=== PATIENT | female | born 1975 | race Caucasian/White ===

== ENCOUNTER 2017-01-30 13:36 | Emergency (ER) | payer SELFPAY ==
[~2017-01-30] VITALS: Ht 170.2 cm; Wt 190.0 kg
[2017-01-30 13:37] VITALS: BP 191/114; PULSE 91; RESP 12; TEMP 98.7; O2SAT 97
[2017-01-30 13:48] VITALS: BP 159/105; PULSE 89
--- NOTE | 2017-01-30 13:49 | PD ---
Physical Exam Time Seen by Provider: 13:46 Narrative 42-year-old female presents emergency department with complaint of bilateral lower leg and feet swelling for the last couple days. Is also complaining of bilateral leg pain and left knee pain. History of DVTs and PE's. Has IVC filter. Currently on Coumadin 17.5 mg daily. Has been told by a training officer that she has a clotting disorder but has not had the testing. Patient seen in triage. Vital signs reviewed. Patient awaiting bed placement. Data Data Last Documented VS Vital Signs Date Time Temp Pulse Resp B/P (MAP) Pulse Ox O2 Delivery O2 Flow Rate FiO2 01/30/17 13:37 98.7 91 12 191/114 (139) 97 MDM Supervised Visit with BENJI: Amira Newton Jan 30, 2017 13:49
[2017-01-30] MEDS ORDERED: PROZ40CA PO (14:24)
[2017-01-30] MEDS ORDERED: COUM10TA PO (14:24)
[2017-01-30] MEDS ORDERED: METO100T PO (14:24)
[2017-01-30] MEDS ORDERED: SODIUM CHLORIDE 0.9% FLUSH 10 ML FLUSH IVF PRN (14:30)
[2017-01-30 14:36] VITALS: RESP 18; O2SAT 98
--- NOTE | 2017-01-30 14:41 | PD ---
HPI Chief Complaint: Pain: Acute or Chronic Time Seen by Provider: 14:23 Travel History International Travel<30 days: No Contact w/Intl Traveler<30days: No Traveled to known affect area: No History of Present Illness HPI Patient comes in complaining of possible new DVTs in bilateral lower extremity secondary to worsening swelling bilateral lower extremities over the past 2 days. Patient states she has a history of DVTs and PE. Patient states she is on Coumadin daily for this and has IVC filter placed. Patient states she's been off of her Coumadin for 5 days since starting her menstrual cycle. Patient states she does not take her Coumadin during her menstrual cycle secondary to making her bleed heavier than normal. Patient reports her clinical services specialist is aware of this. Patient reports she has not taken her blood pressure medicine for 2 days and her last INR was subtherapeutic at 1.8 week ago. Patient states she has been elevating her legs but the swelling is not getting better. States pain is worse when she dangles her legs. Patient describes pain as a sore/achiness in bilateral ankles and left knee. Patient denies any trauma, fevers, shortness breath, chest pain, nausea, vomiting, change in bowel or bladder. Patient also concerned as she feels as though the color extremities becoming more red than normal. Denies any radiation of the pain. PFSH Past Medical History Hx Anticoagulant Therapy: Yes (coumadin) Anemia: Yes Anxiety: Yes Depression: Yes Cardiovascular Problems: Yes (htn) Diminished Hearing: No Deep Vein Thrombosis: Yes Gastrointestinal Disorders: Yes (DIVERTICULITIS HX) Hypertension: Yes Psychiatric: Yes Tetanus Vaccination: > 5 Years Influenza Vaccination: No ?: Not LMP: 01/27/17 : 1 Para: 0 Miscarriage: 0 : 0 Past Surgical History Abdominal Surgery: Yes (GASTRIC BYPASS) Section: Yes (X 1) Cholecystectomy: Yes Social History Alcohol Use: Yes (OCASSIONALLY) Tobacco Use: No (QUIT 3 YEARS AGO) Substance Use: No Allergies-Medications (Allergen,Severity, Reaction): Coded Allergies: cyclobenzaprine (Verified Allergy, Unknown, HIVES , 01/30/17) tramadol (Verified Allergy, Unknown, HIVES, 01/30/17) cefazolin (Verified Adverse Reaction, Unknown, 01/30/17) CONTRAINDICATION FOR COUMADIN TREATMENT Reported Meds & Prescriptions Reported Meds & Active Scripts Active Reported Prozac (Fluoxetine HCl) 40 Mg Cap 80 Mg PO DAILY Metoprolol Tartrate 100 Mg Tab 100 Mg PO BID Coumadin (Warfarin) 10 Mg Tab 17.5 Mg PO DAILY Review of Systems Except as stated in HPI: all other systems reviewed are Neg Physical Exam Narrative GENERAL: Well-developed, overly nourished, in no acute distress, and non-ill appearing. SKIN: Focused skin assessment warm and dry. Mild erythematous bilateral lower extremities distally. Is afebrile, without induration, without crepitus, without fluctuation, and without streaking. HEAD: Atraumatic. Normocephalic. EYES: Pupils equal and round. EOMI. No scleral icterus. No injection or drainage. ENT: No nasal bleeding or discharge. Mucous membranes pink and moist. NECK: Trachea midline. Supple. No nuclear rigidity. CARDIOVASCULAR: Regular rate and rhythm. No murmur appreciated. Radial pulses 2+, intact, equal bilaterally. Capillary refill less than 2 seconds. RESPIRATORY: No accessory muscle use. No respiratory distress. Clear to auscultation. Breath sounds equal bilaterally. MUSCULOSKELETAL: No obvious deformities. No clubbing. No cyanosis. No edema. Full range of motion. Knee: Negative patellar apprehension, varus and valgus maneuvers, anterior draw test, and Oralia test. Pulses equal BL distal to injury. Capillary refill less than 2 seconds distal to injury and equal BL. FROM distal to injury and equal BL. Strength distal to injury equal BL. NV intact distal to injury. Dorsal pulses equal BL. Sensation equal BL 1st web space. Ankle: Neagative anterior draw and Lanier test. Negative [place]'s sign. No laxity noted with passive inversion and eversion of BL ankles. Negative squeeze test. Pulses equal BL distal to injury. Capillary refill less than 2 seconds distal to injury and equal BL. Sensation equal BL 1st web space. FROM of toes distal to injury and equal BL. NV intact distal to injury and equal BL. Dorsal pulses equal BL. NEUROLOGICAL: Awake and alert. No obvious cranial nerve deficits. Motor grossly within normal limits. Normal speech. PSYCHIATRIC: Appropriate mood and affect; insight and judgment normal. Data Data Last Documented VS Vital Signs Date Time Temp Pulse Resp B/P (MAP) Pulse Ox O2 Delivery O2 Flow Rate FiO2 01/30/17 16:50 97.8 78 17 130/81 (97) 99 01/30/17 14:36 Room Air Orders Orders Electrocardiogram (01/30/17 14:30) Basic Metabolic Panel (Bmp) (01/30/17 14:30) Complete Blood Count With Diff (01/30/17 14:30) Magnesium (Mg) (01/30/17 14:30) Prothrombin Time / Inr (Pt) (01/30/17 14:30) Act Partial Throm Time (Ptt) (01/30/17 14:30) Ecg Monitoring (01/30/17 14:30) Iv Access Insert/Monitor (01/30/17 14:30) Oximetry (01/30/17 14:30) Sodium Chloride 0.9% Flush (Ns Flush) (01/30/17 14:30) Us Leg Venous Doppler Bilat (01/30/17 14:30) Acetamin-Hydrocod 325-5 Mg ([place] 5-325 (01/30/17 16:30) Labs Laboratory Tests Test 01/30/17 14:40 White Blood Count 5.6 TH/MM3 Red Blood Count 4.81 MIL/MM3 Hemoglobin 11.1 GM/DL Hematocrit 36.3 % Mean Corpuscular Volume 75.5 FL Mean Corpuscular Hemoglobin 23.1 PG Mean Corpuscular Hemoglobin Concent 30.6 % Red Cell Distribution Width 23.2 % Platelet Count 280 TH/MM3 Mean Platelet Volume 7.5 FL Neutrophils (%) (Auto) 64.9 % Lymphocytes (%) (Auto) 24.2 % Monocytes (%) (Auto) 7.8 % Eosinophils (%) (Auto) 2.7 % Basophils (%) (Auto) 0.4 % Neutrophils # (Auto) 3.6 TH/MM3 Lymphocytes # (Auto) 1.4 TH/MM3 Monocytes # (Auto) 0.4 TH/MM3 Eosinophils # (Auto) 0.2 TH/MM3 Basophils # (Auto) 0.0 TH/MM3 CBC Comment DIFF FINAL Differential Comment Prothrombin Time 10.3 SEC Prothromb Time International Ratio 0.9 RATIO Activated Partial Thromboplast Time 25.3 SEC Blood Urea Nitrogen 10 MG/DL Creatinine 0.78 MG/DL Random Glucose 81 MG/DL Calcium Level 8.7 MG/DL Magnesium Level 2.1 MG/DL Sodium Level 141 MEQ/L Potassium Level 4.3 MEQ/L Chloride Level 110 MEQ/L Carbon Dioxide Level 23.5 MEQ/L Anion Gap 8 MEQ/L Estimat Glomerular Filtration Rate 82 ML/MIN MDM Medical Decision Making Medical Screen Exam Complete: Yes Emergency Medical Condition: Yes Interpretation(s) EKG reviewed by Dr. Toth shows normal sinus rhythm with ventricular rate of 80. Right bundle branch block. No STEMI Differential Diagnosis DVT, cellulitis, medical noncompliance, gout, pseudogout, arthritis, or other Narrative Course Prior discharge patient was again asked about her IVC filter which she states she does have. Patient was offered different blood thinner versus her Coumadin. Patient wants to stay on the Coumadin. Patient in no obvious distress upon re-evaluation. All pertinent laboratory/ Radiology result(s) discussed with patient. Discussed patient with Dr. Toth prior to discharge, who is in agreement with plan of care and disposition. Any questions/concerns in reference to patient diagnosis/condition discussed and clarified prior to patient's discharge. Reinforced sheer importance of close follow up with patient's primary physician or primary care clinic. Instructed patient to return to ED immediately, if symptoms return/worsen. Patient showed understanding of above instructions. Further instructions and recommendations were detailed in discharge paperwork. Patient ambulated without difficulty out of ED at discharge. Diagnosis Primary Impression: Recurrent deep vein thrombosis (DVT) of both lower extremities Additional Impression: Medical non-compliance Patient Instructions: Deep Vein Thrombosis Prevention (ED), General Instructions Additional Instructions: Follow-up with your primary care physician and/or your clinical services specialist for recheck of your INR. Return to the emergency department if symptoms get worse. Disposition: 01 DISCHARGE HOME Condition: Stable Danish Brown Jan 30, 2017 14:41
[2017-01-30 15:10] LABS: AUTOMATED NEUTROPHIL # 3.6 TH/MM3 (1.8-7.7); BASOPHIL % 0.4 % (0.0-2.0); EOSINOPHIL # 0.2 TH/MM3 (0-0.4); EOSINOPHIL % 2.7 % (0.0-4.0); HEMATOCRIT 36.3 % (35.0-46.0); HEMO FLAGS DIFF FINAL; LYMPH % 24.2 % (9.0-44.0); LYMPHOCYTE # 1.4 TH/MM3 (1.0-4.8); MEAN CELL VOLUME 75.5 FL (80.0-100.0); MEAN CORPUSCULAR HEMOGLOBIN 23.1 PG (27.0-34.0); MEAN CORPUSCULAR HGB CONC 30.6 % (32.0-36.0); MONO % 7.8 % (0.0-8.0); NEUT % 64.9 % (16.0-70.0); PLATELET COUNT 280 TH/MM3 (150-450); RED BLOOD COUNT 4.81 MIL/MM3 (4.00-5.30); RED CELL DISTRIBUTION WIDTH 23.2 % (11.6-17.2); WHITE BLOOD COUNT 5.6 TH/MM3 (4.0-11.0)
[2017-01-30 15:22] LABS: APTT (PATIENT) 25.3 SEC (24.3-30.1); INTERNATIONAL NORMALIZED RATIO 0.9 RATIO; PROTHROMBIN TIME - PATIENT 10.3 SEC (9.8-11.6)
[2017-01-30 15:36] LABS: BICARBONATE 23.5 MEQ/L (21.0-32.0); MAGNESIUM 2.1 MG/DL (1.5-2.5); POTASSIUM 4.3 MEQ/L (3.5-5.1)
--- NOTE | 2017-01-30 16:11 | RADRPT ---
EXAM DATE/TIME: 01/30/2017 15:15 [facility] COMPARISON: No previous studies available for comparison. INDICATIONS : Bilateral leg swelling. MEDICAL HISTORY : Hypertension. Deep venous thrombosis. Diverticulitis. Anticoagulant therapy, Coumadin. Anemia. Depres shaq. Anxiety. SURGICAL HISTORY : Cholecystectomy. section. Gastric bypass. ENCOUNTER: Initial ACUITY: 3 days PAIN SCORE: 5/10 LOCATION: Bilateral leg. TECHNIQUE: Venous ultrasound of the left and right leg was performed from the inguinal ligament to the proximal calf. Real-time, color Doppler and spectral tracing, compression and augmentation techniques were us ed. FINDINGS: RIGHT LEG: Echogenic noncompressible material seen throughout the common femoral vein, superficial femoral vein, and popliteal vein consistent with occlusive thrombus. Tibial veins appear patent. Thrombus also not ed within the greater saphenous vein. LEFT LEG: Echogenic noncompressible material is seen consistent with thrombus. This is occlusive within the dis davonte superficial femoral vein and nonocclusive involving the mid superficial femoral vein and poplitea l vein. Trifurcation veins appear patent. CONCLUSION: 1. Bilateral DVT. Mike Diaz Jr., MD on January 30, 2017 at 16:07 Board Certified Radiologist. This report was verified electronically.
[2017-01-30] MEDS ORDERED: ACETAMINOPHEN/HYDROcodone 325 MG/5 MG TAB PO ONE (16:30)
[2017-01-30 16:50] VITALS: BP 130/81; TEMP 97.8
--- NOTE | 2017-01-31 12:17 | EKG ---
Date Performed: 01/30/2017 Time Performed: 14:45:37 PTAGE: 42 years EKG: Sinus rhythm INTRAVENTRICULAR CONDUCTION DELAY ABNORMAL ECG NO PREVIOUS TRACING DOCTOR: Ruth Ann Ospina Interpretating Date/Time 01/31/2017 12:13:51
== END 2017-01-30 16:50 | disposition home or self-care (01) ==
LOC: NEPE 13:36
DX: I82.503 Chronic embolism and thrombosis of unspecified deep veins of lower extremity, bilateral (principal); R94.31 Abnormal electrocardiogram [ECG] [EKG]; Z79.01 Long term (current) use of anticoagulants; I10 Essential (primary) hypertension
CPT/HCPCS: 80048; 83735; 85025; 85610; 85730; 93005; 93970; 99285